=== PATIENT | female | born 1975 | race Hispanic/Latino ===

== ENCOUNTER → 2023-06-23 | Outpatient (CLI) | payer BC | END | disposition home or self-care (01) | LOC: RAH 09:46 | PROVIDERS: ATTEND Nurse Practitioner Family | DX: Z12.31 Encounter for screening mammogram for malignant neoplasm of breast (principal) | CPT/HCPCS: 77067 ==

== ENCOUNTER → 2024-09-05 | Outpatient (CLI) | payer BC ==
--- NOTE | 2024-09-05 10:15 | HMCIMG ---
US ABDOMINAL COMPLETE REASON: lower abd pain COMPARISON: None FINDINGS: There is normal sonographic appearance of the liver. There are no focal mass lesions. The liver is not enlarged.There is a normal-appearing gallbladder. Kidneys appear normal in size and appearance. There is no evidence of mass, stone or hydronephrosis. Spleen and common duct appear normal. Aorta and inferior vena cava appear normal. The pancreas is obscured by overlying bowel gas. IMPRESSION: 1. Normal abdomen sonogram although the pancreas was not visualized.
--- NOTE | 2024-09-05 10:26 | HMCIMG ---
US PELVIC NON-OB COMP REASON: lower abd pain COMPARISON: None TECHNIQUE: Routine pelvic sonogram was performed. FINDINGS: There is normal appearance of the urinary bladder. Uterus is absent. 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 There are no adnexal masses. There is no free fluid in the cul-de-sac. IMPRESSION: 1. Negative post hysterectomy pelvic sonogram.
== END | disposition home or self-care (01) ==
LOC: RAH 07:57
PROVIDERS: ATTEND Nurse Practitioner Family
DX: R10.30 Lower abdominal pain, unspecified (principal); Z90.5 Acquired absence of kidney; Z90.710 Acquired absence of both cervix and uterus
CPT/HCPCS: 76700; 76856

== ENCOUNTER → 2025-05-30 | Outpatient (CLI) | payer BC | END | disposition home or self-care (01) | LOC: RAH 14:20 | PROVIDERS: ATTEND Nurse Practitioner Family | DX: Z12.31 Encounter for screening mammogram for malignant neoplasm of breast (principal) | CPT/HCPCS: 77067 ==